=== PATIENT | female | born 1955 | race Caucasian/White ===

== ENCOUNTER 2025-02-20 14:49 | Emergency (ER) | payer MEDICARE, SELFPAY ==
[2025-02-20 14:52] VITALS: BP 143/74; PULSE 80; RESP 16; TEMP 36.6; O2SAT 97; BMI 25.7
--- NOTE | 2025-02-20 15:12 | CT_ITS ---
FINAL REPORT TECHNIQUE: Axial images through the abdomen and pelvis were performed without contrast.This study was performed with techniques to keep radiation doses as low as reasonably achievable, (ALARA). Individualized dose reduction techniques using automated exposure control or adjustment of mA and/or kV according to the patient's size were employed. CLINICAL HISTORY: intermittend rlq/flank pain FINDINGS: ABDOMEN: The lung bases are clear. The heart size is normal. There is a well-circumscribed low-attenuation structure in the right hepatic lobe measuring up to 3 cm consistent with a benign cyst. There are multiple gallstones filling the gallbladder lumen. The spleen is normal. No adrenal mass is identified. The aorta is normal in caliber. There is no significant adenopathy. There is a nonobstructing stone at the left UPJ measuring 5 mm best seen on image 33 of series 1001. There is no hydronephrosis. There is a questionable small amount of fluid anterior to the right kidney on image 58 of series 3 measuring 7 mm. A fat-containing umbilical hernia is present. PELVIS: The appendix is normal. Uterus lies midline. The urinary bladder is unremarkable. There is no significant free fluid or adenopathy. IMPRESSION: No hydronephrosis or nephrolithiasis. Stone filled gallbladder. Nonobstructing left UPJ stone. Nonspecific fluid anterior to the right kidney. Consider CT with contrast for further evaluation. Reviewed, Interpreted and Dictated by Srinivas Stewart MD Transcribed by Malathi Berman Authenticated and [facility]
[2025-02-20 15:14] VITALS: BP 115/66; PULSE 67; O2SAT 98
[2025-02-20 15:17] LABS: Microscopic, Urine URINE MICROSCOPIC (MICROSCOPIC)
[2025-02-20 15:25] LABS: Appearance,Urine CLEAR (Clear); Bilirubin,Urine Negative (Negative); Blood, Urine 3+ (Negative); Color,Urine YELLOW (Yellow); Glucose,Urine (UA) Negative (Negative); Ketones,Urine 2+ (Negative); Leukocyte Esterase,Urine Negative (Negative); Nitrate,Urine Negative (Negative); Protein,Urine 1+ (Negative); Specific Gravity, Urine >= 1.030 (1.005-1.030); Urobilinogen,Urine 0.2 EU/dl (0.2)
--- NOTE | 2025-02-20 15:25 | ED_ITS ---
Discharge Plan Disposition Patient Disposition: Home, Self-Care Prescriptions Prescriptions: New ondansetron 4 mg tablet,disintegrating 4 mg PO Q6H PRN (Reason: nausea and vomiting) 5 Days Qty: 20 0RF Referrals Follow up/Referrals: Provider,MD Alex [Primary Care Provider] - See instructions Benjamin Ching MD [Staff Physician] - See instructions Activity Restrictions/Add. Instructions Additional Instructions/Restrictions: I recommend that you follow-up with Dr. Ching as discussed you had blood in your urine there was a nonobstructing kidney stone and your ureteropelvic junction which was not in your collecting system and as discussed is almost certainly not the cause of your symptoms today. No other stones were noted. He did have numerous stones noted in your gallbladder but you had no symptoms or tenderness in that region so unlikely to be the cause your symptoms but be aware of that as well. Overall there is diagnostic uncertainty and I recommend that you follow- up with urology. If there is any persistent worsening or severity of your symptoms that returns I recommend that you return to the emergency department. Clinical Impressions Clinical Impression: Abdominal pain, RLQ, Kidney stone, Hematuria, Cholelithiasis Instructions Patient Instructions: DI for Acute Abdominal Pain Print Language Print Language: Iranian Discharge ED Provider: Crow Us General Adult HPI General Chief complaint: Abdominal Pain Stated complaint: abd/back pain Time Seen by Provider: 02/20/25 15:06 Mode of Arrival: Ambulatory Source of Information: Patient Description of Symptoms (Recalled from ER Triage Doc. by RN): Pt was sent from [facility] for further evaluation of lower abd pain that started at 0545 today. Pt states she has n/v, and increased bowel movements History of Present Illness HPI narrative: Pt presents today with sudden RLQ abd pain radiating to the back which started at 545a. She also has had n/v since that time. The symptoms have been intermittent throughout the day. She had hematuria a few weeks ago but this has resolved. No history of kidney stones. No abd surgeries in the past. Pain currently 1/10 but was 8/10 just a few hours ago. Related Data Previous Rx's ?Medication ?Instructions ?Recorded ondansetron 4 mg disintegrating 4 mg PO Q6H PRN nausea and 02/20/25 tablet vomiting 5 days #20 tabs Allergies Allergy/AdvReac Type Severity Reaction Status Date / Time Penicillins Allergy Hives Verified 02/20/25 15:14 [facility] Disclaimer: The information contained in this section may have been updated after the patient was seen, as this information can be updated by other users. Social History Smoking Status: Never smoker alcohol intake: never current occupational status: other Travel in the last 8 weeks: None ROS Obtained: Yes All systems reviewed & no additional complaints except as documented Physical Exam General General appearance: alert Respiratory Respiratory exam: Present normal lung sounds bilaterally Cardiovascular Cardiovascular exam: Present regular rate Abdominal Exam Abdominal exam: Present soft; Absent distention or tenderness Back Exam Back exam: Absent CVA tenderness (R) or CVA tenderness (L) Neurological Exam Neurological exam: Present alert and oriented X3 Medical Decision Making Medical Records Screening: Per USPSTF and CDC recommendations, given the prevalence of disease in our region, it is our hospital?s policy to screen for HIV and viral Hepatitis for all patients aged 18 and over and those with ongoing risk factors. Taz Inquiry Pt receiving controlled substance: No Vital Signs: 02/20/25 14:52 02/20/25 15:14 02/20/25 15:30 Temperature 97.8 F Temperature Source Oral Pulse Rate 67 62 Pulse Rate [Right] 80 Respiratory Rate 16 Blood Pressure 115/66 94/65 L Blood Pressure [Right Arm] 143/74 H Blood Pressure Mean 77 Blood Pressure Mean [Right Arm] 97 Blood Pressure Source [Right Arm] Automatic Cuff Blood Pressure Position [Right Arm] Sitting 02 Sat by Pulse Oximetry 97 98 96 Oxygen Delivery Method Room Air Lab Data Lab results reviewed: Yes I reviewed the patient's lab results. Lab Results 02/20/25 15:09: WBC 11.0 H, RBC 4.86, Hgb 14.7, Hct 42.5, MCV 87.4, MCH 30.2, MCHC 34.6, RDW 13.6, Plt Count 267, MPV 11.2 H, Neut % (Auto) 93.5 H, Lymph % (Auto) 4.0 L, [place] % (Auto) 1.7, Eos % (Auto) 0.0 L, Baso % (Auto) 0.3, Neut # (Auto) 10.3 H, Lymph # (Auto) 0.4 L, [place] # (Auto) 0.2, Eos # (Auto) 0.0, Baso # (Auto) 0.0, Total Counted 100, Neutrophils % (Manual) 94 H, Lymphocytes % (Manual) 6 L, Platelet Estimate Normal, RBC Morphology Normal, Sodium 141, Potassium 3.6, Chloride 102, Carbon Dioxide 26, Anion Gap 16.6 H, BUN 24 H, Creatinine 1.00, Estimated Creat Clear 60, Estimated GFR 55 L, Est GFR ( Amer) 67, Glucose 123 H, Calcium 9.2, Total Bilirubin 0.6, AST 24, ALT 20, Alkaline Phosphatase 76, Total Protein 7.8, Albumin 4.8, Globulin 3.0, Albumin/Globulin Ratio 1.6, Urine Color Yellow, Urine Appearance Clear, Urine pH 6.0, Ur Specific [place] >= 1.030, Urine Protein 1+ A, Urine Glucose (UA) Negative, Urine Ketones 2+, Urine Blood 3+ A, Urine Nitrate Negative, Urine Bilirubin Negative, Urine Urobilinogen 0.2, Ur Leukocyte Esterase Negative, Urine RBC 20-50, Urine WBC Occasional, Ur Squamous Epith Cells 3-5, Urine Bacteria Trace 02/20/25 15:09 02/20/25 15:09 Orders (Tests/Meds): ED MEDICATIONS Discontinued Medications Generic Name Dose Route Start Last Admin Trade Name Freq PRN Reason Stop Dose Admin Lactated Ringer's 1,000 mls @ 999 mls/hr 02/20/25 15:15 02/20/25 15:31 Lactated Ringer's 1000 Ml Bag IV 02/20/25 16:15 999 mls/hr .Q1H1M TAMEKA Administration Ketorolac Tromethamine 15 mg 02/20/25 15:12 02/20/25 15:30 Ketorolac 30mg/Ml Vial IV 02/20/25 15:13 15 mg ONCE ONE Administration Ondansetron HCl 4 mg 02/20/25 15:12 02/20/25 15:31 Ondansetron 4mg/2ml Vial IV 02/20/25 15:13 4 mg ONCE ONE Administration ORDERS Category Date Time Status CT abdomen pelvis wo con Stat Cat Scan 02/20/25 15:12 Completed CBC w/Auto Diff [Complete Blood Count Auto Diff] Stat Lab 02/20/25 15:09 Completed CMP [Comprehensive Metabolic Panel] Stat Lab 02/20/25 15:09 Completed HIV Combo Stat Lab 02/20/25 15:15 Ordered Hepatitis C Ab Qual. W/ RFX Stat Lab 02/20/25 15:15 Ordered UA [Urinalysis and Microscopic] Stat Lab 02/20/25 15:09 Completed Medical Decision Narrative: Patient is a 69-year-old female with subtle right lower quadrant abdominal pain radiating through to her back. This has been associate with nausea and vomiting and has been intermittent. Bleeding on the differential would be stone. She does have some mild tenderness of the right lower quadrant appendicitis bowel obstruction mesenteric ischemia etc. on the differential as well. Noncontrasted CT scan has been ordered in addition to his pain medicine nausea medicine and labs. Will reassess after this workup is complete. Reassessment 5:25 PM patient feeling much better serial assessments are benign. Patient does have blood in her urine. CT scan was performed which I personally interpreted shows no evidence of any acute intra-abdominal pathology. She does have a nonobstructing UPJ stone which is not the collecting system, certainly not the cause of her symptoms today. No other stones noted. She also had cholelithiasis but she has no right upper quadrant abdominal pain or tenderness and likely an incidental finding she was made aware of this. But her symptoms are not consistent with biliary colic today. We did get a noncontrasted CT scan but she had enough fat planes to build to see tissue and inflammation but I do not believe that a contrasted scan or angiography at this point would be beneficial particularly given the significant improvement in her symptoms. She has been advised that there is some diagnostic uncertainty and to return with any persistent worsening or severity of her symptoms. She has been given a referral to Dr. Ching her urologist particular for her hematuria. No definitive explanation for her right lower quadrant abdominal pain but she is improved and discharged in stable condition. Critical Care Critical Care Time Critical Care Time: No
[2025-02-20 15:27] LABS: Alanine Aminotransferase 20 U/L (12-78); Albumin Level 4.8 g/dl (3.5-5.0); Albumin/Globulin Ratio 1.6 (1.1-1.8); Alkaline Phosphatase 76 U/L (38-126); Anion Gap 16.6 mEq/L (5-15); Aspartate Amino Transferase 24 U/L (14-36); Bilirubin,Total 0.6 mg/dl (0.2-1.3); Blood Urea Nitrogen 24 mg/dl (7-17); Calcium 9.2 mg/dl (8.4-10.2); Carbon Dioxide 26 mmol/L (22.0-30.0); Chloride 102 mmol/L (98-107); Creatinine Clearance Estimated 60 mL/min (50-200); Estimated Glomerular Filt Rate 55 ml/min (>60); GFR (African American) 67 ML/MIN (>60); Glucose 123 mg/dl (74-100); Potassium 3.6 mmoL/L (3.5-5.1); Sodium 141 mmol/L (136-145); Total Protein,Serum 7.8 g/dl (6.3-8.2)
[2025-02-20 15:28] LABS: Basophils % 0.3 % (0.1-2.0); Hematocrit 42.5 % (37.0-47.0); Hemoglobin 14.7 g/dL (12.2-16.2); Lymphocytes # 0.4 K/mm3 (0.7-4.5); Mean Corpuscular HGB Conc 34.6 g/dL (31.8-35.4); Mean Corpuscular Hemoglobin 30.2 pg (27.0-31.2); Mean Corpuscular Volume 87.4 fl (81-99); Mean Platelet Volume 11.2 fl (7.4-10.4); Monocytes # 0.2 K/mm3 (0.1-1.0); Monocytes % 1.7 % (1.7-9.3); Neutrophils # 10.3 K/mm3 (1.8-7.8); Neutrophils % 93.5 % (37.0-80.0); Nucleated Red Blood Cells # 0 10^3/uL; Nucleated Red Blood Cells % 0 %; Platelet Count 267 K/mm3 (142-424); Red Blood Count 4.86 M/mm3 (4.20-5.40); Red Cell Distribution Width 13.6 % (11.5-17.5); Red Cell Distribution Width-SD 43.4 fL
[2025-02-20 15:30] VITALS: BP 94/65; PULSE 62; O2SAT 96
[2025-02-20] MEDS: KETOROLAC 30MG/ML VIAL 15 MG IV (15:30)
[2025-02-20] MEDS: ONDANSETRON 4MG/2ML VIAL 4 MG IV (15:31)
[2025-02-20] MEDS: LACTATED RINGERS 1000ML 1,000 ML 999 ML IV (15:31)
[2025-02-20 15:35] LABS: MANUAL DIFFERENTIAL MANUAL DIFFERENTIAL (MANUAL DIFF)
[2025-02-20 15:46] LABS: RBC,Urine 20-50 #/hpf (0-3); WBC,Urine Occasional #/hpf (0-3)
[2025-02-20 15:47] LABS: Bacteria,Urine Trace /lpf
[2025-02-20 16:36] LABS: Lymphocytes % 6 % (10-50); Neutrophils % 94 % (42-76); Total Cells Counted 100
[2025-02-20 16:37] LABS: Platelet Estimate Normal; RBC Morphology Normal
[2025-02-20 17:35] VITALS: BP 129/63; PULSE 60; RESP 19; TEMP 37.1; O2SAT 97
[2025-02-20 18:21] LABS: HIV Combo NEGATIVE (Negative)
[2025-02-20 18:29] LABS: Hepatitis C Ab Qual. W/ RFX NEGATIVE (Negative)
== END 2025-02-20 17:36 | disposition home or self-care (01) ==
PROVIDERS: Emergency Provider Student in an Organized Health Care Education/Training Program
DX: R10.31 Right lower quadrant pain (principal); R11.2 Nausea with vomiting, unspecified; N20.0 Calculus of kidney; R31.9 Hematuria, unspecified; K80.20 Calculus of gallbladder without cholecystitis without obstruction; M54.59 Other low back pain; Z11.59 Encounter for screening for other viral diseases; Z11.4 Encounter for screening for human immunodeficiency virus [HIV]
CPT/HCPCS: 74176; 80053; 81001; 85007; 85025; 85027; 86803; 87389; 96361; 96374; 96375; 99284; J1885; J2405; J7120